=== PATIENT | female | born 1970 | race Caucasian/White ===

== ENCOUNTER → 2019-05-17 18:12 | Outpatient (CLI) | payer OTHER, SELFPAY ==
--- NOTE | ~2019-05-17 | MM_ITS ---
EXAMINATION: MM screening ley[facility] BI w winifred HISTORY: Screening mammogram TECHNIQUE: Bilateral rotated lateral CC views. Craniocaudal and mediolateral oblique 3-D tomosynthesi s images were obtained and synthetic 2-D images were generated. CAD analysis was submitted and interp reted. COMPARISON: No prior mammogram is available for comparison at this institution. BREAST PARENCHYMAL COMPOSITION: The breasts are heterogeneously dense, which may obscure small masses . FINDINGS: There is no evidence of suspicious mass, calcification, or architectural distortion to sugg est malignancy in either breast. There has been no suspicious interval change. IMPRESSION: 1. No mammographic evidence of malignancy. 2. Recommend routine screening mammography in one year. BI-RADS Category 1: Negative Reviewed, dictated and finalized at location A.
== END ==
PROVIDERS: Visit Provider Obstetrics & Gynecology
DX: Z12.31 Encounter for screening mammogram for malignant neoplasm of breast (principal)
CPT/HCPCS: 77063; 77067

== ENCOUNTER 2022-01-06 07:00 | Outpatient (NON) | payer OTHER, SELFPAY | END 2022-01-06 07:01 | disposition home or self-care (01) | LOC: ANHLAB 01-07 16:06 | PROVIDERS: PCP Internal Medicine; Visit Provider Nurse Practitioner | DX: C44.41 Basal cell carcinoma of skin of scalp and neck (principal) | CPT/HCPCS: 88305; 88342 ==

== ENCOUNTER 2022-01-31 10:01 | Outpatient (NON) | payer OTHER, SELFPAY | END 2022-01-31 10:02 | disposition home or self-care (01) | PROVIDERS: PCP Internal Medicine; Visit Provider Nurse Practitioner | DX: C44.41 Basal cell carcinoma of skin of scalp and neck (principal) | CPT/HCPCS: 88305 ==